=== PATIENT | male | born 1995 | race Caucasian/White ===

== ENCOUNTER 2021-10-26 20:54 | Observation (INO) ==
[2021-10-26] MEDS ORDERED: Lidocaine/EPI 1:100k 1% 20 ML VIAL INFILT ONE (21:30)
[2021-10-26] MEDS ORDERED: Tdap (Boostrix) Vaccine 0.5 ML SYRINGE IM ONE (22:02)
[2021-10-26] MEDS ORDERED: Nicotine 7 MG PATCH.TD24 TD STA (23:08)
[2021-10-26 23:15] LABS: Basophils # 0.1 K/mcL (0.0-0.2); Basophils % 0.4 %; Eosinophils % 0.1 %; Hematocrit 44.8 % (37.5-50.1); Hemoglobin 15.2 g/dL (12.9-16.9); Immature Granulocytes % 0.6 % (0-4); Lymphocytes # 2.1 K/mcL (0.6-4.6); Lymphocytes % 15.5 %; Mean Corpuscular HGB Conc 33.9 g/dL (31.6-35.5); Mean Corpuscular Hemoglobin 29.9 pg (28.0-33.3); Mean Platelet Volume 10.6 fL (9.4-12.4); Monocytes # 1.5 K/mcL (0.0-1.3); Monocytes % 11.1 %; Neutrophils # 9.6 K/mcL (1.6-8.9); Platelet Count 231 K/mcL (140-400); Red Blood Count 5.09 M/mcL (4.19-5.50); Red Cell Distribution Width 12.1 % (11.5-14.5); Segmented Neutrophils % 72.3 %; White Blood Count 13.3 K/mcL (4.3-11.1)
[2021-10-26 23:18] LABS: Amphetamine Screen,Urine Negative ng/mL (Cutoff=1000); Bacteria,Urine Few per hpf (None-Few); Barbiturate Screen,Urine Negative ng/mL (Cutoff=200); Benzodiazepines Screen,Urine Negative ng/mL (Cutoff=200); Bilirubin,Urine Negative (Negative); Blood,Urine Large (Negative); Cannabinoid Screen,Urine Negative ng/mL (Cutoff = 50); Clarity,Urine Turbid (Clear); Cocaine Screen,Urine Negative ng/mL (Cutoff= 300); Color,Urine Light-Yellow (Yellow); Glucose,Urine (UA) Normal (Normal); Hyaline Casts,Urine Few per lpf (None Seen); Ketones,Urine Negative (Negative); Leukocyte Esterase,Urine Small (Negative); Mucus,Urine Few per lpf (None-Few); Nitrite,Urine Negative (Negative); Opiate Screen,Urine Negative ng/mL (Cutoff=300); PH,Urine 6.5 pH Units (5.0-8.0); Phencyclidine Screen,Urine Negative ng/mL (Cutoff=25); Protein,Urine 70 mg/dL (Neg-Trace); RBC,Urine 50-100 per hpf (0-3); Specific Gravity,Urine 1.019 (1.010-1.025); Squamous Epithelial Cell,Urine Few per hpf (None-Few); Urobilinogen,Urine Normal (Normal)
[2021-10-26 23:29] LABS: Acetaminophen < 10 mcg/mL (10-20); BUN/Creatinine Ratio 25 (6-26); Blood Urea Nitrogen 18 mg/dL (6-20); Carbon Dioxide 23 mEq/L (23-29); Chloride 105 mEq/L (98-107); Ethanol < 10 mg/dL (Less than 10); Glucose 93 mg/dL (70-105); Osmolality,Calculated 286 (280-300); Salicylate < 2.5 mg/dL (15.0-30.0); Sodium 137 mEq/L (136-145)
[2021-10-27 04:05] LABS: Influenza A PCR Negative (Negative); Influenza B PCR Negative (Negative); Resp. Syncytial Virus PCR Negative (Negative)
[2021-10-27 04:10] LABS: SARS-CoV-2 by PCR (In House) Positive (Negative)
[2021-10-27] MEDS ORDERED: Acetaminophen 325 MG TABLET PO PRN (05:02)
[2021-10-27] MEDS ORDERED: Naloxone 0.4 MG/ML INJ IVP PRN (05:02)
[2021-10-27] MEDS ORDERED: Ondansetron 4 MG/2 ML VIAL IVP PRN (05:02)
[2021-10-27] MEDS: OLANZapine 10 MG TAB.RAPDIS PO SCH (11:19)
[2021-10-27] MEDS ORDERED: Lithium Oral Soln 300 MG/5 ML (8 mEq/5mL) UDC PO SCH (12:15)
[2021-10-27] MEDS: LITHIUM CARBONATE 150 MG PO SCH (15:10)
[2021-10-27] MEDS: Divalproex (24 HR) 500 MG TABLET PO SCH (19:46)
[2021-10-27] MEDS ORDERED: Divalproex (24 HR) 500 MG TABLET PO SCH (21:00)
[2021-10-28] MEDS: Divalproex (24 HR) 500 MG TABLET PO SCH ×2 (08:21→20:32)
[2021-10-28] MEDS: OLANZapine 10 MG TAB.RAPDIS PO SCH (08:21)
[2021-10-28] MEDS: LITHIUM CARBONATE 150 MG PO SCH (08:21)
[2021-10-29] MEDS: Melatonin 3 MG TABLET PO PRN ×2 (00:13→23:53)
[2021-10-29] MEDS: OLANZapine 10 MG TAB.RAPDIS PO SCH (08:24)
[2021-10-29] MEDS: LITHIUM CARBONATE 150 MG PO SCH (08:24)
[2021-10-29] MEDS: Divalproex (24 HR) 500 MG TABLET PO SCH ×2 (08:24→08:35)
[2021-10-30 04:57] LABS: Hepatitis B Surface Antigen Nonreactive (Nonreactive)
[2021-10-30 05:26] LABS: HIV-1&2 Antibody & p24 Ag Nonreactive (Nonreactive)
[2021-10-30 05:27] LABS: Hepatitis B Core IgM Nonreactive (Nonreactive); Hepatitis C Virus Antibody Nonreactive (Nonreactive)
[2021-10-30 05:29] LABS: Hepatitis A Antibody IgM Nonreactive (Nonreactive)
[2021-10-30] MEDS: Divalproex (24 HR) 500 MG TABLET PO SCH (08:04)
[2021-10-30] MEDS: OLANZapine 10 MG TAB.RAPDIS PO SCH (08:04)
[2021-10-30] MEDS: LITHIUM CARBONATE 150 MG PO SCH (08:05)
[2021-10-30] MEDS: Melatonin 3 MG TABLET PO PRN (22:56)
[2021-10-31] MEDS: Divalproex (24 HR) 500 MG TABLET PO SCH (08:53)
[2021-10-31] MEDS: OLANZapine 10 MG TAB.RAPDIS PO SCH (08:53)
[2021-10-31] MEDS: LITHIUM CARBONATE 150 MG PO SCH (08:55)
[2021-10-31] MEDS ORDERED: Divalproex (24 HR) 500 MG TABLET PO SCH (21:00)
[2021-10-31] MEDS ORDERED: OLANZapine 10 MG TAB.RAPDIS PO SCH (21:00)
[2021-10-31] MEDS: Melatonin 3 MG TABLET PO PRN (22:12)
[2021-11-01] MEDS: LITHIUM CARBONATE 150 MG PO SCH ×2 (08:04→11:23)
[2021-11-01 08:23] VITALS: TEMP 98.2
[2021-11-01 11:48] VITALS: BP 138/92; PULSE 93; O2SAT 94
== END 2021-11-01 16:11 | disposition other institution (70) ==
LOC: 3BNU 20:54 → EMEROOARM 20:54 → MERGE 10-27 04:56 → SUATTDRO 10-27 04:56 → 3BNU 10-27 05:01
PROVIDERS: ADMIT Internal Medicine; ATTEND Nurse Practitioner